=== PATIENT | male | born 1990 | race Caucasian/White ===

== ENCOUNTER 2023-04-15 01:11 | Emergency (ER) | payer OTHER ==
[~2023-04-15] VITALS: Ht 167.6 cm; Wt 117.9 kg
[2023-04-15 01:15] VITALS: BP 130/109; PULSE 71; RESP 20; TEMP 97.9; O2SAT 98
[2023-04-15 01:39] VITALS: BP 130/109; PULSE 20; RESP 20; TEMP 97.9; O2SAT 98
[2023-04-15 01:47] VITALS: BP 130/109; PULSE 20; RESP 20; TEMP 97.9; O2SAT 98
[2023-04-15] MEDS ORDERED: DECADRON ONE (01:50)
[2023-04-15] MEDS ORDERED: TORADOL ONE (01:50)
[2023-04-15] MEDS: DECADRON IV STA (01:59)
[2023-04-15] MEDS: TORADOL IM ONE (02:00)
[2023-04-15 02:03] VITALS: BP 138/91; PULSE 70; RESP 20; TEMP 97.9; O2SAT 98
== END 2023-04-15 02:07 | disposition home or self-care (01) ==
LOC: ER 01:11
DX: M10.9 Gout, unspecified (principal)
CPT/HCPCS: 99284; 96374; 96372; J1100; J1885